=== PATIENT | female | born 1995 ===

== ENCOUNTER 2020-01-08 16:47 | Emergency (ER) | payer SELFPAY ==
[~2020-01-08] VITALS: Ht 162.6 cm; Wt 81.8 kg
[2020-01-08 16:49] VITALS: BP 134/67
[2020-01-08 17:56] LABS: APPEARANCE,URINE CLOUDY (CLEAR); BILIRUBIN,URINE NEGATIVE (NEGATIVE); GLUCOSE, URINE (UA) NEGATIVE (NEGATIVE); KETONES,URINE NEGATIVE (NEGATIVE); LEUKOCYTE ESTERASE ,URINE LARGE (NEGATIVE); NITRATE,URINE NEGATIVE (NEGATIVE); OCCULT BLOOD,URINE NEGATIVE (NEGATIVE); PH,URINE 7.5 (5.0-8.0); PROTEIN,URINE SEE CONFIRM (NEGATIVE); UROBILINOGEN,URINE 0.2 mg/dL (<=1.0)
[2020-01-08 18:13] LABS: SULFOSALICYLIC ACID,URINE Trace (Negative)
[2020-01-08 18:14] LABS: RBC,URINE None Seen /HPF (0-2); WBC,URINE 51-100 /HPF (0-5)
[2020-01-08 18:15] LABS: BACTERIA,URINE None Seen /HPF (None Seen); SQUAMOUS EPITHELIAL CELL,UR Few /LPF (None Seen)
== END 2020-01-08 17:20 | disposition left against medical advice (07) ==
LOC: EMS 16:47
DX: R10.9 Unspecified abdominal pain (principal); Z53.21 Procedure and treatment not carried out due to patient leaving prior to being seen by health care provider
CPT/HCPCS: 87086